=== PATIENT | female | born 1980 | race Caucasian/White ===

== ENCOUNTER 2016-03-03 15:42 | Emergency (ER) | payer OTHER ==
[~2016-03-03] VITALS: Ht 162.6 cm; Wt 114.7 kg
[~2016-03-03 15:42] MED LIST: ADVAIR; ALBUTEROL; AMPHETAMINE SAL20 MG PO; BACLOFEN10 MG PO; CIPRO500 MG PO; CLONIDINE HCL0.3 MG PO; GABAPENTIN300 MG PO; LASIX; MEDROL DOSEPAK4 MG PO; PERCOCET 5/31 TABLET PO
[2016-03-03 16:05] LABS: ADD MIUA? YES; BILIRUBIN NEGATIVE; BLOOD MODERATE; COLOR YELLOW ((YELLOW)); GLUCOSE (STRIP) NEGATIVE; KETONES NEGATIVE; LEUKOCYTES NEGATIVE; NITRITE NEGATIVE; PROTEIN (STRIP) NEGATIVE
[2016-03-03 16:13] LABS: MCH 26.8 PG (29.0-34.0); MCHC 33.6 G/DL (30.0-36.0); MCV 79.8 FL (83-99); MEAN PLAT.VOLUME 10.8 uM^3 (9.5-12.4); PLATELET COUNT 315 K/uL (156-360); RBC DIS.WIDTH-CV 12.3 % (11.8-14.6); RED BLOOD COUNT 4.89 M/uL (3.80-5.20); WHITE BLOOD COUNT 13.3 K/uL (4.1-10.2)
[2016-03-03 16:15] LABS: BACTERIA 1+; CASTS NONE SEEN /LPF; CRYSTALS NONE SEEN; EPITHELIAL CELLS 2+; MUCUS NONE SEEN; PATHOLOGICAL CAST NONE SEEN; RED BLOOD CELLS 0-5 /HPF (0-5); SMALL ROUND CELL NONE SEEN; UCUL ADDED? NO; WHITE BLOOD CELLS 0-5 /HPF (0-5); YEAST-LIKE CELL NONE SEEN
[2016-03-03 16:29] LABS: CHLORIDE 104 mEq/L (99-109); POTASSIUM 3.6 mEq/L (3.7-5.4); SODIUM 138 mEq/L (136-147)
[2016-03-03] MEDS ORDERED: LAMICTAL100 MG PO (16:30)
[2016-03-03] MEDS ORDERED: PROZAC20 MG PO (16:30)
[2016-03-03 16:31] LABS: GLUCOSE 102 mg/dL (70-99)
[2016-03-03 16:32] LABS: ANION GAP 10 MEQ/L (2-14)
[2016-03-03 16:35] LABS: GFR ESTIMATE (CALCULATED) > 59 mL/min/; UREA NITROGEN (BUN) 10 mg/dL (9-23)
[2016-03-03 16:44] LABS: QUANTITATIVE HCG < 4.0 MIU/ML
[2016-03-03 17:04] LABS: TOTAL BILIRUBIN 0.3 mg/dL (0.0-1.0)
[2016-03-03 17:06] LABS: ALKALINE PHOSPHATASE 71 IU/L (3-129)
[2016-03-03 17:08] LABS: DIRECT BILIRUBIN 0.1 mg/dL (0.0-0.3)
[2016-03-03 17:09] LABS: LIPASE 15 U/L (1.0-51.0)
[2016-03-03] MEDS ORDERED: BENTYL10 MG PO (18:46)
[2016-03-03 19:02] VITALS: BP 124/74
== END 2016-03-03 19:02 | disposition home or self-care (01) ==
LOC: RME 15:42 → EME 15:42 → RME 19:02
DX: R10.13 Epigastric pain (principal); Z88.0 Allergy status to penicillin; Z88.2 Allergy status to sulfonamides
CPT/HCPCS: 74176; 80048; 80076; 81003; 83690; 84702; 85027; 99281; 99284; J0780; J1885